=== PATIENT | male | born 1940 | race African-American/Black ===

== ENCOUNTER 2020-05-23 15:05 | Emergency (ER) | payer OTHER ==
[~2020-05-23] VITALS: Ht 177.8 cm; Wt 90.0 kg
[2020-05-23] MEDS: ACETAMINOPHEN 325MG TABLET PO ONE ×2 (20:05→20:08)
[2020-05-23 22:36] VITALS: BP 141/65
== END 2020-05-23 22:36 | disposition home or self-care (01) ==
LOC: ER 15:32
DX: S42.035A Nondisplaced fracture of lateral end of left clavicle, initial encounter for closed fracture (principal); I11.9 Hypertensive heart disease without heart failure; I48.91 Unspecified atrial fibrillation; Z90.49 Acquired absence of other specified parts of digestive tract; Z79.01 Long term (current) use of anticoagulants; W01.0XXA Fall on same level from slipping, tripping and stumbling without subsequent striking against object, initial encounter; Y93.89 Activity, other specified; Y92.488 Other paved roadways as the place of occurrence of the external cause
CPT/HCPCS: 73030; 73200; 99284